=== PATIENT | female | born 1970 | race Two or more races ===

== ENCOUNTER 2016-07-21 14:34 | Emergency (ER) | payer SELFPAY ==
--- NOTE | 2016-07-21 14:42 | ER Document Report ---
ED Medical Screen (RME) - General Stated Complaint: TROUBLE BREATHING Mode of Arrival: Ambulatory Information source: Patient Notes: Patient presents to the emergency department with sore throat fever last night. Hoarse voice. No known exposure to strep. Denies vomiting diarrhea. Pt has tried honey, no relief of symptom. I have greeted and performed a rapid initial assessment of this patient. A comprehensive ED assessment and evaluation of the patient, analysis of test results and completion of the medical decision making process will be conducted by additional ED providers. TRAVEL OUTSIDE OF THE [place] IN LAST 30 DAYS: No - Related Data Allergies/Adverse Reactions: No Known Allergies Allergy (Verified 01/27/15 11:04) Past Medical History - Past Medical History Cardiac Medical History: Denies: Hx Coronary Artery Disease, Hx Heart Attack, Hx Hypertension Pulmonary Medical History: Reports: Hx Asthma - last attack about 2 years ago, Hx Bronchitis - last year Denies: Hx COPD, Hx Pneumonia Neurological Medical History: Denies: Hx Cerebrovascular Accident, Hx Seizures Musculoskeltal Medical History: Denies Hx Arthritis Psychiatric Medical History: Reports: Hx Anxiety - Immunizations Hx Diphtheria, Pertussis, Tetanus Vaccination: Yes
[2016-07-21] MEDS ORDERED: PREDNISONE 20 MG TABLET PO ONE (16:06)
[2016-07-21] MEDS ORDERED: IPRATROPIUM/ALBUTEROL 0.5-2.5 MG/3 ML AMPUL NEB ONE ×2 (16:06→17:28)
[2016-07-21] MEDS ORDERED: GUAIFENESIN 600 MG TABLET.SA PO ONE (16:07)
--- NOTE | 2016-07-21 16:12 | ER Document Report ---
ED Respiratory Problem - General Chief Complaint: Sore Throat Stated Complaint: TROUBLE BREATHING Time seen by provider: 16:08 Mode of Arrival: Ambulatory Information source: Patient Notes: This is a 46-year-old female with a history of asthma, breast cancer. She presents to the emergency room with 2 day history of fever, cough, wheezing, sore throat and pain with swallowing. Past medical history: Breast cancer status post right lumpectomy, status post chemotherapy and radiation therapy. Asthma Medicines: None No known drug allergies Primary care physician: Dr. Rodriguez TRAVEL OUTSIDE OF THE [place] IN LAST 30 DAYS: No - HPI Patient complains to provider of: Asthma Onset: Other - Past 2 days Quality of pain: Achy, Dull Severity: Mild Pain Level: 1 Context: Other - Asthma Short of Breath: Mild Chest pain/discomfort: denies: Center, Constant, Heaviness, Intermittent, Left, Pain, Radiates to arm, Radiates to back, Radiates to jaw, Right, Tightness, Worse with deep breaths Cough: Nonproductive Sputum amount: None At home treatment: denies: Bronchodilators, CPAP, Diuretics, Inhaled steroids, Oral steroids, Oxygen, Singulair, Theophylline EMS treatments: No: Bronchodilators, CPAP, Diuretics, Epinephrine, Nitrates, Oxygen, Solumedrol Associated symptoms: Chills, Congestion, Cough, Fever, Short of breath, Wheezing Similar symptoms previously: No Recently seen / treated by doctor: No - Related Data Allergies/Adverse Reactions: No Known Allergies Allergy (Verified 07/21/16 14:42) Past Medical History - General Information source: Patient - Social History Smoking Status: Never Smoker Cigarette use (# per day): No Chew tobacco use (# tins/day): No Frequency of alcohol use: None Drug Abuse: None Lives with: Family Family History: Reviewed & Not Pertinent Patient has suicidal ideation: No Patient has homicidal ideation: No - Past Medical History Cardiac Medical History: Denies: Hx Coronary Artery Disease, Hx Heart Attack, Hx Hypertension Pulmonary Medical History: Reports: Hx Asthma - last attack about 2 years ago, Hx Bronchitis - last year Denies: Hx COPD, Hx Pneumonia Neurological Medical History: Denies: Hx Cerebrovascular Accident, Hx Seizures Renal/ Medical History: Denies: Hx Peritoneal Dialysis Malignancy Medical History: Reports: Hx Breast Cancer GI Medical History: Reports: None Musculoskeltal Medical History: Denies Hx Arthritis Psychiatric Medical History: Reports: Hx Anxiety Past Surgical History: Reports: Hx Breast Surgery, Other - Status post left port (removed approximately one year ago) - Immunizations Hx Diphtheria, Pertussis, Tetanus Vaccination: Yes Review of Systems - Review of Systems Constitutional: Chills, Fever EENT: See HPI Cardiovascular: No symptoms reported Respiratory: See HPI, Cough, Short of breath, Wheezing Gastrointestinal: No symptoms reported Genitourinary: No symptoms reported Female Genitourinary: No symptoms reported Musculoskeletal: No symptoms reported Skin: No symptoms reported Hematologic/Lymphatic: No symptoms reported Neurological/Psychological: No symptoms reported Physical Exam - Vital signs Vitals: Temp Pulse Resp BP Pulse Ox 97.9 F 87 18 122/75 98 07/21/16 14:40 07/21/16 14:40 07/21/16 14:40 07/21/16 14:40 07/21/16 14:40 Notes: Physical exam: GENERAL: 46-year-old female, alert and oriented 3, no acute distress. Patient does have a hoarse voice. She has no stridor, no drooling. HEAD: Atraumatic, normocephalic. EYES: Pupils equal round and reactive to light, extraocular movements intact, sclera anicteric, conjunctiva are normal. ENT: TMs normal, nares patent, oropharynx clear without exudates, no uvula deviation, no swelling, no erythema. Moist mucous membranes. NECK: Normal range of motion, supple without lymphadenopathy , no tracheal deviation LUNGS: Breath sounds clear to auscultation bilaterally and equal. No wheezes rales or rhonchi. HEART: Regular rate and rhythm without murmurs, rubs or gallops. ABDOMEN: Soft, normoactive bowel sounds. No tenderness to palpation. No guarding, no rebound. No masses appreciated. EXTREMITIES: Normal range of motion, no pitting or edema. No clubbing or cyanosis. NEUROLOGICAL: Cranial nerves II through XII grossly intact. Normal speech, normal gait. PSYCH: Normal mood, normal affect. SKIN: Warm, Dry, normal turgor, no rashes or lesions noted. Course - Re-evaluation Re-evalutation: 07/21/16 19:09 Patient is feeling much better after nebulizer treatments. She was given an inhaler to go home. She was started on antibiotics and steroids. - Vital Signs Vital signs: Temp Pulse Resp BP Pulse Ox 98.0 F 91 18 115/88 H 98 07/21/16 19:38 07/21/16 19:38 07/21/16 14:40 07/21/16 19:38 07/21/16 19:38 - Diagnostic Test Radiology reviewed: Image reviewed, Reports reviewed - Chest x-ray shows no pneumonia Discharge - Discharge Clinical Impression: bronchitis with bronchospasm Condition: Stable Disposition: HOME, SELF-CARE Instructions: Bronchitis With Bronchospasm (Wheezing) ([facility]) Additional Instructions: Recommendations: Use the inhaler every 6 hours (2 puffs) as needed. Start the Medrol Dosepak tomorrow: New given today's dose of steroids in the ER. Start the antibiotics tomorrow: New given today's antibiotics in the ER Rest, drink plenty of fluids Follow-up with Dr. Rodriguez Return to the emergency room for worsening shortness of breath or difficulty breathing. Prescriptions: Azithromycin [Zithromax 250 mg Tablet] 250 mg PO ASDIR PRN #6 tablet PRN Reason: Methylprednisolone [Medrol 4 mg Dosepack 21 Tab/Pack] 4 mg PO ASDIR PRN #21 tab.ds.pk PRN Reason: Forms: Return to Work Referrals: LANRE RODRIGUEZ MD [Primary Care Provider] - Follow up in 3-5 days
[2016-07-21] MEDS ORDERED: IBUPROFEN 600 MG TABLET PO ONE (17:56)
[2016-07-21] MEDS ORDERED: AZITHROMYCIN 250 MG TABLET PO ONE (18:09)
[2016-07-21] MEDS ORDERED: ALBUTEROL SULFATE HFA (90 MCG/PUFF) 8 GM MDI (1 MDI/ER DISP) IH PRN (19:06)
[2016-07-21 19:42] VITALS: BP 115/88
== END 2016-07-21 19:39 | disposition home or self-care (01) ==
LOC: ER 14:34
DX: J20.9 Acute bronchitis, unspecified (principal); J02.9 Acute pharyngitis, unspecified; Z85.3 Personal history of malignant neoplasm of breast
CPT/HCPCS: 94640 ×2; 99283; 87070; 87880; 71020; 70360; J7512; J3490; J7620

== ENCOUNTER → 2016-07-24 | Outpatient (CLI) | payer OTHER ==
[2016-07-24 17:11] LABS: ABSOLUTE MONOCYTES (AUTO) 0.2 10^3/uL (0.1-1.4); ABSOLUTE NEUT (AUTO) 7.3 10^3/uL (1.7-8.2); BASOPHILS % (AUTO) 0.3 % (0-2); EOSINOPHILS % (AUTO) 0.5 % (0-6); HEMATOCRIT 39.9 % (36.0-47.0); HEMOGLOBIN 13.4 g/dL (12.0-15.5); HGB HCT DIFFERENCE 0.3; LYMPHOCYTES % (AUTO) 11.7 % (13-45); MEAN CORPUSCULAR HEMOGLOBIN 29.9 pg (27.0-33.4); MEAN CORPUSCULAR HGB CONC 33.6 g/dL (32.0-36.0); MEAN CORPUSCULAR VOLUME 89 fl (80-97); MONOCYTES % (AUTO) 2.6 % (3-13); RED BLOOD COUNT 4.48 10^6/uL (3.72-5.28); RED CELL DISTRIBUTION WIDTH 13.5 % (11.5-14.0); SEGMENTED NEUTROPHILS % (AUTO) 84.9 % (42-78); WHITE BLOOD COUNT 8.6 10^3/uL (4.0-10.5)
[2016-07-24 17:32] LABS: ALANINE AMINOTRANSFERASE 39 U/L (9-52); ALBUMIN 4.7 g/dL (3.5-5.0); ALKALINE PHOSPHATASE 67 U/L (38-126); ANION GAP 11 (5-19); ASPARTATE AMINO TRANSFERASE 27 U/L (14-36); BILIRUBIN,TOTAL 0.6 mg/dL (0.2-1.3); BLOOD UREA NITROGEN 12 mg/dL (7-20); CALCIUM 9.8 mg/dL (8.4-10.2); CARBON DIOXIDE 25 mmol/L (22-30); CHLORIDE 102 mmol/L (98-107); CREATINE KINASE 62 U/L (30-135); CREATININE RESULT 0.74 mg/dL (0.52-1.25); GLUCOSE 110 mg/dL (75-110); POTASSIUM 4.6 mmol/L (3.6-5.0); TOTAL PROTEIN 7.9 g/dL (6.3-8.2)
== END ==
LOC: OD 16:01
PROVIDERS: ATTEND Physician Assistant
DX: R07.9 Chest pain, unspecified (principal)
CPT/HCPCS: 36415; 80053; 82550; 82553; 85025; 85379

== ENCOUNTER 2016-12-01 16:54 | Emergency (ER) | payer OTHER ==
--- NOTE | 2016-12-01 18:12 | ER Document Report ---
HPI - HPI Pain Level: 4 Notes: Patient is a 38-year-old female presents the ED status [place] to arrival. Patient states that she did not hit her head, lose consciousness, or have any nausea/vomiting. Patient states that she did injure her left lower leg/ankle along with her right forearm and right humerus. Patient notes bruising and some swelling to those areas. Patient states that she is unable to weight-bear because of the pain in her left leg. The pains do not radiate otherwise. The pains are described as sharp and achy along with soreness. She has not had any thing for her symptoms. No other concerns or complaints. Denies any headache, fever, URI, sore throat, dysphagia , dysphasia, changes in mentation/vision/hearing/speech, chest pain, palpitations, syncope, cough, wheeze, shortness of breath, dyspnea, abdominal pain, nausea/vomiting/diarrhea, hematuria, back pain, muscle paralysis/weakness , loss of control bowel or bladder, saddle anesthesia, numbness/tingling, urinary retention, or rash otherwise. Patient denies any drug allergies. Patient has a past medical history significant for breast cancer and depression without any current SI/HI. Her PCM is Vero Galeas who works in Dr. Dumont's office. She denies any smoking, illicit drugs, or alcohol use. No other recent travel, illness, sick contacts. - ROS Notes: REVIEW OF SYSTEMS: CONSTITUTIONAL : Denies fever, chills, or sweats. Denies recent illness. EENT: Denies eye, ear, throat, or mouth pain or symptoms. Denies nasal or sinus congestion or discharge. Denies throat, tongue, or mouth swelling or difficulty swallowing. CARDIOVASCULAR: Denies chest pain. Denies palpitations or racing or irregular heart beat. Denies ankle edema. RESPIRATORY: Denies cough, cold, or chest congestion. Denies shortness of breath, difficulty breathing, or wheezing. GASTROINTESTINAL: Denies abdominal pain or distention. Denies nausea, vomiting , or diarrhea. Denies blood in vomitus, stools, or per rectum. Denies black, tarry stools. Denies constipation. GENITOURINARY: Denies difficulty urinating, painful urination, burning, frequency, blood in urine, or discharge. MUSCULOSKELETAL: see hpi SKIN: Denies rash, lesions or sores. NEUROLOGICAL: Denies confusion or altered mental status. Denies passing out or loss of consciousness. Denies dizziness or lightheadedness. Denies headache. Denies weakness or paralysis or loss of use of either side. Denies problems with gait or speech. Denies sensory loss, numbness, or tingling. ALL OTHER SYSTEMS REVIEWED AND NEGATIVE. Dictation was performed using [employer] voice recognition software - CARDIOVASCULAR Cardiovascular: DENIES: Chest pain - REPRODUCTIVE Reproductive: DENIES: : - DERM Skin Color: Normal Past Medical History - Social History Smoking Status: Former Smoker Chew tobacco use (# tins/day): No Frequency of alcohol use: None Drug Abuse: None Family History: Reviewed & Not Pertinent - Past Medical History Cardiac Medical History: Denies: Hx Coronary Artery Disease, Hx Heart Attack, Hx Hypertension Pulmonary Medical History: Reports: Hx Asthma - last attack about 2 years ago, Hx Bronchitis - last year Denies: Hx COPD, Hx Pneumonia Neurological Medical History: Denies: Hx Cerebrovascular Accident, Hx Seizures Renal/ Medical History: Denies: Hx Peritoneal Dialysis Malignancy Medical History: Reports: Hx Breast Cancer Musculoskeltal Medical History: Denies Hx Arthritis Psychiatric Medical History: Reports: Hx Anxiety Past Surgical History: Reports: Hx Breast Surgery - and lymph nodes, Other - Status post left port (removed approximately one year ago) - Immunizations Hx Diphtheria, Pertussis, Tetanus Vaccination: Yes Vertical Provider Document - CONSTITUTIONAL Agree With Documented VS: Yes Notes: PHYSICAL EXAMINATION: GENERAL: Well-appearing, well-nourished and in no acute distress. Pt sitting in WC. HEAD: Atraumatic, normocephalic. Non-tender. No richardson sign EYES: Pupils equal round and reactive to light, extraocular movements intact, sclera anicteric, conjunctiva are normal. No raccoon eyes/entrapment ENT: EAC clear b/l. TM's intact b/l without erythema, fluid, or perforation. Nares patent and without discharge. oropharynx clear without exudates. No tonsilar hypertrophy or erythema. Moist mucous membranes. No sinus tenderness. No hemotympanum/CSF discharge. NECK: Normal range of motion, supple without lymphadenopathy. No rigidity. No midline tenderness. Spurling negative. NEXUS negative. Chest: No ecchymosis. No flail chest. equal rise/fall. Non-tender LUNGS: Breath sounds clear to auscultation bilaterally and equal. No wheezes rales or rhonchi. HEART: Regular rate and rhythm without murmurs, rubs, gallops. ABDOMEN: Soft, nontender, nondistended abdomen. No guarding, no rebound. No masses appreciated. Normal bowel sounds present. No CVA tenderness bilaterally. No ecchymosis. Musculoskeletal: Lt leg: FROM at the knee/ankle to passive/active. Strength 5+ /5. + ecchymosis noted to the anterior lower leg with swelling. Swelling also noted to the lateral ankle. + tenderness to palp of the tib/fib and lateral malleolus. No foot tenderness. N/V intact distal with 2+ pulses. Rt arm: + mild ecchymosis distal humerus with mild tenderness to palp. No tenderness to palp of the elbow. Rt forearm: + ecchymosis to the posterior proximal 1/3 forearm with tenderness to palp. N/V intact distal. Back: FROM to passive/active. Strength 5+/5. No vertebral point tenderness, stepoffs, or deformities. No other bony tenderness or ecchymosis. Extremities: No cyanosis, clubbing, or edema b/l. Peripheral pulses 2+. Capillary refill less than 2 seconds. NEUROLOGICAL: MMSE intact. Cranial nerves grossly intact. Normal speech. Normal sensory, motor exams. Reflexes 2+ b/l. AKI's negative. Pronator drift negative. Heel/pruett, finger/nose wnl. PSYCH: Normal mood, normal affect. SKIN: Warm, Dry, normal turgor, no rashes or lesions noted.--See MSK exam otherwise. - INFECTION CONTROL TRAVEL OUTSIDE OF THE [place] IN LAST 30 DAYS: No - RESPIRATORY O2 Sat by Pulse Oximetry: 98 Course - Re-evaluation Re-evalutation: 12/01/16 19:15 Patient is an afebrile, well-hydrated, 38-year-old female presents the ED with leg, arm, forearm contusions and ankle sprain/strain based on H&P. XR unremarkable for any acute fracture/dislocation. Oxycodone 5mg given PO today. Vitals are stable. PE otherwise unremarkable. Crutches provided. Voltaren gel and meloxicam Rx given. Conservative measures for symptoms otherwise. Recheck with PCM this week. Consider consult with Orthopedics for ongoing/ worsening symptoms. Return to the ED with any worsening/concerning symptoms otherwise as reviewed in discharge. Patient is in agreement. - Vital Signs Vital signs: Temp Pulse Resp BP Pulse Ox 98.7 F 95 16 104/62 98 12/01/16 17:11 12/01/16 17:11 12/01/16 17:11 12/01/16 17:11 12/01/16 17:11 Discharge - Discharge Clinical Impression: Contusion of leg, left Qualifiers: Encounter type: initial encounter Qualified Code(s): S80.12XA - Contusion of left lower leg, initial encounter Arm pain Qualifiers: Laterality: right Qualified Code(s): M79.601 - Pain in right arm Muscle strain of ankle Qualifiers: Encounter type: initial encounter Laterality: left Qualified Code(s): S96.912A - Strain of unspecified muscle and tendon at ankle and foot level, left foot, initial encounter Condition: Stable Disposition: HOME, SELF-CARE Instructions: Ice & Elevation ([facility]), Ice Packs ([facility]), Warm Packs ([facility]), Use of Crutches ([facility]) Additional Instructions: Rest, Ice, Compression, Elevation Use cruthces as directed Tylenol/ibuprofen as needed Light stretches daily Strength exercises as able Moist heat and massage may help F/u with your PCP in 2-3 days for a recheck Consider consult(s) with Orthopedics for ongoing/worsening symptoms Return to the ED with any worsening symptoms and/or development of fever, headache, chest pain, palpitations, syncope, shortness of breath, trouble breathing, abdominal pain, n/v/d, blood in stool/urine, loss of control of bowel /bladder, urinary retention, muscle weakness/paralysis, saddle anesthesia, numbness/tingling, or other worsening symptoms that are concerning to you. Prescriptions: Diclofenac Sodium [Voltaren] 4 gm TP QID PRN #100 gel..gm. PRN Reason: Meloxicam 7.5 mg PO BID PRN #20 tablet PRN Reason: Referrals: [facility] ([facility]) [Provider Group] - Follow up as needed
[2016-12-01] MEDS ORDERED: OXYCODONE HCL IR 5 MG TABLET PO ONE (18:21)
--- NOTE | 2016-12-01 19:04 | RADIOLOGY REPORT (SQ) ---
EXAM DESCRIPTION: ANKLE LEFT COMPLETE COMPLETED DATE/TIME: 12/01/2016 6:51 pm REASON FOR STUDY: Left ankle/leg pain s/p fall, + ecchymosis/swellin COMPARISON: None. NUMBER OF VIEWS: Three views. TECHNIQUE: AP, lateral, and oblique radiographic images acquired of the left ankle. LIMITATIONS: None. FINDINGS: MINERALIZATION: Normal. BONES: No acute fracture or dislocation. No worrisome bone lesions. JOINTS: No effusions. SOFT TISSUES: Lateral soft tissue swelling. OTHER: No other significant finding. IMPRESSION: Lateral soft tissue swelling without underlying osseous injury. TECHNICAL DOCUMENTATION: JOB ID: [id number] [employer]- All Rights Reserved
--- NOTE | 2016-12-01 19:05 | RADIOLOGY REPORT (SQ) ---
EXAM DESCRIPTION: FOREARM RIGHT COMPLETED DATE/TIME: 12/01/2016 6:51 pm REASON FOR STUDY: Rt forearm pain s/p fall, + ecchymosis/swelling COMPARISON: None. NUMBER OF VIEWS: Two views. TECHNIQUE: Two radiographic images acquired of the right forearm, including elbow and wrist in at le ast one projection. LIMITATIONS: None. FINDINGS: MINERALIZATION: Normal. BONES: No acute fracture. No worrisome bone lesions. SOFT TISSUES: No obvious swelling or foreign body. OTHER: No other significant finding. IMPRESSION: NEGATIVE STUDY OF THE RIGHT FOREARM. NO RADIOGRAPHIC EVIDENCE OF ACUTE INJURY. TECHNICAL DOCUMENTATION: JOB ID: [id number] [employer]- All Rights Reserved
--- NOTE | 2016-12-01 19:05 | RADIOLOGY REPORT (SQ) ---
EXAM DESCRIPTION: TIBIA FIBULA LEFT COMPLETED DATE/TIME: 12/01/2016 6:51 pm REASON FOR STUDY: Left ankle/leg pain s/p fall, + ecchymosis/swellin COMPARISON: None. NUMBER OF VIEWS: Two views. TECHNIQUE: Two radiographic images acquired of the left tibia and fibula to include the knee and ank le in at least one projection. LIMITATIONS: None. FINDINGS: MINERALIZATION: Normal. BONES: No acute fracture or dislocation. No worrisome bone lesions. SOFT TISSUES: Lateral soft tissue swelling. OTHER: No other significant finding. IMPRESSION: Lateral soft tissue swelling without underlying osseous injury. TECHNICAL DOCUMENTATION: JOB ID: [id number] [employer]- All Rights Reserved
--- NOTE | 2016-12-01 19:06 | RADIOLOGY REPORT (SQ) ---
EXAM DESCRIPTION: HUMERUS RIGHT COMPLETED DATE/TIME: 12/01/2016 6:51 pm REASON FOR STUDY: Right arm pain s/p fall, + ecchymosis COMPARISON: None. NUMBER OF VIEWS: Two views. TECHNIQUE: Two radiographic images were acquired of the right humerus to include elbow and shoulder in at least one projection. LIMITATIONS: None. FINDINGS: MINERALIZATION: Normal. BONES: No acute fracture or dislocation. No worrisome bone lesions. SOFT TISSUES: Incidental note is made of axillary surgical clips. No acute abnormality. OTHER: No other significant finding. IMPRESSION: NEGATIVE STUDY OF THE RIGHT HUMERUS. NO RADIOGRAPHIC EVIDENCE OF ACUTE INJURY. TECHNICAL DOCUMENTATION: JOB ID: [id number] [employer]- All Rights Reserved
[2016-12-01 19:27] VITALS: BP 107/64
== END 2016-12-01 19:28 | disposition home or self-care (01) ==
LOC: ER 16:54
DX: S96.912A Strain of unspecified muscle and tendon at ankle and foot level, left foot, initial encounter (principal); S80.12XA Contusion of left lower leg, initial encounter; S40.021A Contusion of right upper arm, initial encounter; S50.11XA Contusion of right forearm, initial encounter; W10.9XXA Fall (on) (from) unspecified stairs and steps, initial encounter; Y92.009 Unspecified place in unspecified non-institutional (private) residence as the place of occurrence of the external cause; J45.909 Unspecified asthma, uncomplicated; Z85.3 Personal history of malignant neoplasm of breast; Z87.891 Personal history of nicotine dependence
CPT/HCPCS: 99283

== ENCOUNTER → 2016-12-13 | Outpatient (CLI) | payer OTHER ==
--- NOTE | 2016-12-13 10:41 | RADIOLOGY REPORT (SQ) ---
EXAM DESCRIPTION: VENOUS UNILATERAL LOWER COMPLETED DATE/TIME: 12/13/2016 9:46 am REASON FOR STUDY: LLE PAIN M79.605 PAIN IN LEFT LEG COMPARISON: None. TECHNIQUE: Dynamic and static chaudhry scale and color images acquired of the left leg venous system. Se lected spectral images acquired with additional compression and augmentation maneuvers. The contralat eral common femoral vein and saphenofemoral junction were also imaged. Images stored on PACS. LIMITATIONS: None. FINDINGS: COMMON FEMORAL: Normal phasicity, compression and augmentation. No visualized echogenic ma terial on chaudhry scale. No defects on color images. FEMORAL: Normal compression and augmentation. No visualized echogenic material on chaudhry scale. No defe cts on color images. POPLITEAL: Normal compression, augmentation. No visualized echogenic material on chaudhry scale. No defec ts on color images. CALF VESSELS: Normal compression, augmentation. No visualized echogenic material on chaudhry scale. No de fects on color images. GSV and SSV: Normal compression, augmentation. No visualized echogenic material on chaudhry scale. No def ects on color images. ANY DEEP VENOUS INSUFFICIENCY: Not evaluated. ANY EVIDENCE OF POPLITEAL CYST: No. OTHER: There is a subcutaneous fluid collection in the anterior left calf measuring 47 x 46 x 10 mm. CONTRALATERAL COMMON FEMORAL VEIN AND SAPHENOFEMORAL JUNCTION: Normal phasicity, compression and augmentation. No visualized echogenic material on chaudhry scale. No de fects on color images. IMPRESSION: 1. NO EVIDENCE OF DVT OR SVT IN THE LEFT LEG. 2. Possible hematoma in the anterior left calf. TECHNICAL DOCUMENTATION: JOB ID: [id number] [employer]- All Rights Reserved
== END ==
LOC: SP 09:00
PROVIDERS: ATTEND Physician Assistant
DX: M79.605 Pain in left leg (principal)
CPT/HCPCS: 93971

== ENCOUNTER 2017-06-20 13:06 | Emergency (ER) | payer OTHER ==
[2017-06-20 13:20] VITALS: BP 108/74
--- NOTE | 2017-06-20 15:24 | ER Document Report ---
HPI - HPI Pain Level: 1 Notes: Patient is a 47-year-old female with a history of asthma who presents ED complaining of chills, dry nonproductive cough, one episode of nausea/vomiting, occasional diarrhea (x2) that all began this morning. Patient states that since then she has been eating and drinking without any difficulties. She is urinating normally. Patient has not been using any afcs-bau-ldnrnjp meds for symptoms. She is ambulatory without any chest pains or dyspnea on exertion. She denies any drug allergies. Denies any IV drug use. Patient has been exposed to multiple illnesses around her household. Denies any headache, fever , neck pain, URI, sore throat, chest pain, palpitations, syncope, shortness of breath, wheeze, dyspnea, abdominal pain, urinary retention, dysuria, hematuria, hematemesis, melena, hematochezia, or rash. - ROS Systems Reviewed and Negative: Yes All other systems reviewed and negative - NEURO Neurology: REPORTS: Headache - REPRODUCTIVE Reproductive: DENIES: : Past Medical History - Social History Smoking Status: Never Smoker Chew tobacco use (# tins/day): No Frequency of alcohol use: None Drug Abuse: None Family History: Reviewed & Not Pertinent Patient has suicidal ideation: No Patient has homicidal ideation: No - Past Medical History Cardiac Medical History: Denies: Hx Coronary Artery Disease, Hx Heart Attack, Hx Hypertension Pulmonary Medical History: Reports: Hx Asthma - last attack about 2 years ago, Hx Bronchitis - last year Denies: Hx COPD, Hx Pneumonia Neurological Medical History: Denies: Hx Cerebrovascular Accident, Hx Seizures Renal/ Medical History: Denies: Hx Peritoneal Dialysis Malignancy Medical History: Reports: Hx Breast Cancer Musculoskeltal Medical History: Denies Hx Arthritis Psychiatric Medical History: Reports: Hx Anxiety Past Surgical History: Reports: Hx Breast Surgery - and lymph nodes, Other - Status post left port (removed approximately one year ago) - Immunizations Hx Diphtheria, Pertussis, Tetanus Vaccination: Yes Vertical Provider Document - CONSTITUTIONAL Agree With Documented VS: Yes Notes: PHYSICAL EXAMINATION: GENERAL: Well-appearing, well-nourished and in no acute distress. A&Ox4. Answers questions appropriately. Moves comfortably w/o notable distress HEAD: Atraumatic, normocephalic. EYES: Pupils equal round and reactive to light, extraocular movements intact, sclera anicteric, conjunctiva are normal. ENT: EAC clear b/l. TM's intact b/l without erythema, fluid, or perforation. Nares patent and without discharge. oropharynx no erythema without exudates. No tonsilar hypertrophy without erythema or exudate. No palatine shift. Uvula midline. No tongue protrusion. No drooling, hoarseness, or airway compromise. Moist mucous membranes. No sinus tenderness. NECK: Normal range of motion, supple without lymphadenopathy. No rigidity/ meningismus. LUNGS: Breath sounds clear to auscultation bilaterally and equal. No wheezes rales or rhonchi. No retractions HEART: Regular rate and rhythm without murmurs, rubs, gallops. ABDOMEN: Soft, nontender, nondistended abdomen. No guarding, no rebound. No masses appreciated. Normal bowel sounds present. No CVA tenderness bilaterally. No hepatosplenomegaly. NEUROLOGICAL: Normal speech, normal gait. Normal sensory, motor exams PSYCH: Normal mood, normal affect. SKIN: Warm, Dry, normal turgor, no rashes or lesions noted. - INFECTION CONTROL TRAVEL OUTSIDE OF THE [place] IN LAST 30 DAYS: No - RESPIRATORY O2 Sat by Pulse Oximetry: 100 Course - Re-evaluation Re-evalutation: 06/20/17 15:21 Patient is an afebrile, well-hydrated, 47-year-old female presents to the ED with a suspected viral illness. Vitals are stable. PE is otherwise unremarkable. No labs or imaging warranted at this time based on H&P. Patient is tolerating p.o. without any difficulties. Lungs are clear to auscultation bilaterally. Oxygen saturation is 100%, nontoxic, not tachycardiac, non- tachypneic. Low suspicion for any meningitis, sepsis, peritonsillar/pharyngeal abscess, respiratory compromise, Martin's, acute abdomen, or other emergent systemic condition at this time. Patient is aware this condition can change from initial presentation and she needs to monitor symptoms closely. Conservative measures otherwise for symptoms. Recheck with your PCM in 3-5 days. Return to the ED with any worsening/concerning symptoms otherwise as reviewed in discharge. Patient is in agreement. - Vital Signs Vital signs: Temp Pulse Resp BP Pulse Ox 99.0 F 95 18 108/74 100 06/20/17 13:19 06/20/17 13:19 06/20/17 13:19 06/20/17 13:19 06/20/17 13:19 Discharge - Discharge Clinical Impression: Cough, Viral syndrome Diarrhea Qualifiers: Diarrhea type: unspecified type Qualified Code(s): R19.7 - Diarrhea, unspecified Condition: Stable Disposition: HOME, SELF-CARE Instructions: Viral Syndrome ([facility]), Diarrhea, Nonspecific ([facility]) Additional Instructions: Maintain adequate fluid and food intake [place] diet (B.R.[employer].T[employer] Bananas, rice, apples, toast, etc tylenol if needed Monitor for any worsening symptoms Make sure you are staying hydrated enough to urinate and have normal BM's cold medications as needed Recheck with your PCM in 3-5 days Consider consult with Gastroenterology for ongoing/worsening symptoms Return to the ED with any worsening symptoms and/or development of fever, headache, chest pain, palpitations, syncope, shortness of breath, trouble breathing, abdominal pain, n/v/d, blood in stool/urine, weakness, or other worsening symptoms that are concerning to you. Referrals: PAULINA LORENZANA MD [ACTIVE STAFF] - Follow up as needed
== END 2017-06-20 15:37 | disposition home or self-care (01) ==
LOC: ER 13:06
DX: B34.9 Viral infection, unspecified (principal); R05 Cough; R11.2 Nausea with vomiting, unspecified; R19.7 Diarrhea, unspecified; R68.83 Chills (without fever); R51 Headache; J45.909 Unspecified asthma, uncomplicated; Z85.3 Personal history of malignant neoplasm of breast
CPT/HCPCS: 99283

== ENCOUNTER 2018-03-22 14:38 | Emergency (ER) | payer OTHER ==
[2018-03-22 14:43] VITALS: BP 132/79
[2018-03-22] MEDS ORDERED: PENICILLIN V POTASSIUM 500 MG TABLET PO ONE (14:52)
[2018-03-22] MEDS ORDERED: IBUPROFEN 800 MG TABLET PO ONE (14:52)
--- NOTE | 2018-03-22 14:53 | ER Document Report ---
HPI - HPI Patient complains to provider of: tooth pain Pain Level: 4 Context: Patient is a 48-year-old female presenting to the emergency department complaining of tooth pain. Patient states she has had intermittent tooth pain for months now. States she has not been to a dentist for same. States this morning she woke up with some minor swelling to the right side of her face which worried her. This is why she presents to the emergency room. Patient denies trouble eating, fever, headache. Past medical history: Breast cancer, hyperlipidemia Medications: Unknown Allergies: None - CONSTITUTIONAL Constitutional: DENIES: Fever, Chills - REPRODUCTIVE Reproductive: DENIES: : Past Medical History - General Information source: Patient - Social History Smoking Status: Never Smoker Chew tobacco use (# tins/day): No Frequency of alcohol use: None Drug Abuse: None Lives with: Family Family History: Reviewed & Not Pertinent Patient has suicidal ideation: No Patient has homicidal ideation: No - Past Medical History Cardiac Medical History: Denies: Hx Coronary Artery Disease, Hx Heart Attack, Hx Hypertension Pulmonary Medical History: Reports: Hx Asthma - last attack about 2 years ago, Hx Bronchitis - last year Denies: Hx COPD, Hx Pneumonia Neurological Medical History: Denies: Hx Cerebrovascular Accident, Hx Seizures Renal/ Medical History: Denies: Hx Peritoneal Dialysis Malignancy Medical History: Reports: Hx Breast Cancer Musculoskeletal Medical History: Denies Hx Arthritis Psychiatric Medical History: Reports: Hx Anxiety Past Surgical History: Reports: Hx Breast Surgery - and lymph nodes, Other - Status post left port (removed approximately one year ago) - Immunizations Hx Diphtheria, Pertussis, Tetanus Vaccination: Yes Vertical Provider Document - CONSTITUTIONAL Agree With Documented VS: Yes Notes: GENERAL: Alert, interacts well. No acute distress. HEAD: Normocephalic, atraumatic. EYES: Pupils equal, round, and reactive to light. Extraocular movements intact. ENT: Oral mucosa moist, tongue midline. Multiple missing teeth, obvious dental caries throughout all dentition. Fractured tooth noted tooth #3 and 4. Minor erythema noted to gumline. No areas of fluctuance or induration noted. Slight swelling noted to right cheek overlying skin not erythematous, indurated or fluctuant. NECK: Full range of motion. Supple. Trachea midline. No lymphadenopathy appreciated LUNGS: Clear to auscultation bilaterally, no wheezes, rales, or rhonchi. No respiratory distress. HEART: Regular rate and rhythm. No murmur ABDOMEN: Soft, non-tender. Non-distended. Bowel sounds present in all 4 quadrants. EXTREMITIES: Moves all 4 extremities spontaneously. No edema, normal radial and dorsalis pedis pulses bilaterally. No cyanosis. BACK: no cervical, thoracic, lumbar midline tenderness. No saddle anesthesia, normal distal neurovascular exam. NEUROLOGICAL: Alert and oriented x3. Normal speech. cranial nerves II through XII grossly intact PSYCH: Normal affect, normal mood. SKIN: Warm, dry, normal turgor. No rashes or lesions noted. - INFECTION CONTROL TRAVEL OUTSIDE OF THE [place] IN LAST 30 DAYS: No Course - Re-evaluation Re-evalutation: 03/22/18 15:26 Discussed need for antibiotics with patient at bedside. Discussed follow-up with community care in clinic or with her primary dentist. Discussed return precautions. - Vital Signs Vital signs: Temp Pulse Resp BP Pulse Ox 98.8 F 79 14 132/79 H 100 03/22/18 14:43 03/22/18 14:43 03/22/18 14:43 03/22/18 14:43 03/22/18 14:43 Discharge - Discharge Clinical Impression: Toothache, Dental caries Fractured tooth Qualifiers: Encounter type: initial encounter Fracture type: closed Qualified Code(s): S02.5XXA - Fracture of tooth (traumatic), initial encounter for closed fracture Condition: Stable Disposition: HOME, SELF-CARE Instructions: [facility], Clindamycin ([facility]), Toothache ([facility]) Additional Instructions: Toothache Your pain is due to dental decay. The tooth must be repaired in order for you to feel better. You will, therefore, be referred to a dentist. Severe swelling or drainage around a tooth usually means a deep dental abscess. This also requires evaluation and treatment by the dentist, but antibiotics may be prescribed while awaiting dental treatment. You should be rechecked immediately if you develop major swelling of the face, increasing pain, a lump in the jaw or gums, headache, or fever. Prescriptions: Clindamycin HCl 300 mg PO QID 10 Days capsule Referrals: LANRE RODRIGUEZ MD [Primary Care Provider] - Follow up as needed
== END 2018-03-22 15:30 | disposition home or self-care (01) ==
LOC: ER 14:38
DX: S02.5XXA Fracture of tooth (traumatic), initial encounter for closed fracture (principal); K08.9 Disorder of teeth and supporting structures, unspecified; X58.XXXA Exposure to other specified factors, initial encounter; Z85.3 Personal history of malignant neoplasm of breast
CPT/HCPCS: 99282

== ENCOUNTER 2018-10-10 12:41 | Emergency (ER) | payer MEDICAID, OTHER ==
--- NOTE | 2018-10-10 13:43 | RADIOLOGY REPORT (SQ) ---
EXAM DESCRIPTION: KNEE RIGHT 4 VIEWS COMPLETED DATE/TIME: 10/10/2018 1:19 pm REASON FOR STUDY: fall COMPARISON: None. NUMBER OF VIEWS: Four views. TECHNIQUE: AP, lateral, and both oblique radiographic images acquired of the right knee. LIMITATIONS: None. FINDINGS: MINERALIZATION: Normal. BONES: No acute fracture or dislocation. No worrisome bone lesions. JOINT: No effusion. SOFT TISSUES: No soft tissue swelling. No radio-opaque foreign body. OTHER: No other significant finding. IMPRESSION: NEGATIVE STUDY OF THE RIGHT KNEE. NO RADIOGRAPHIC EVIDENCE OF ACUTE INJURY. TECHNICAL DOCUMENTATION: JOB ID: [id number] [employer]- All Rights Reserved Reading location - IP/workstation name: [email or web address]
--- NOTE | 2018-10-10 14:05 | ER Document Report ---
HPI - HPI Time Seen by Provider: 10/10/18 13:25 Pain Level: 2 Context: Patient is a 48-year-old female who presents the emergency department with right knee pain. She states that she was at a water park 6 days ago with her grandkids and she hit the medial aspect of her right knee, but cannot recall what she hit her knee on. She states that she has been having pain ever since that day. She is able to walk, and has been walking at work for the past week. She states that if her leg is straight she does not have any pain but when she bends her knee, she ends up having pain. She has not seen her primary care provider in regards to this issue. - ROS Systems Reviewed and Negative: Yes All other systems reviewed and negative - REPRODUCTIVE Reproductive: DENIES: : - MUSCULOSKELETAL Musculoskeletal: REPORTS: Extremity pain - Right knee Past Medical History - Social History Smoking Status: Never Smoker Family History: Reviewed & Not Pertinent Patient has suicidal ideation: No Patient has homicidal ideation: No - Past Medical History Cardiac Medical History: Denies: Hx Coronary Artery Disease, Hx Heart Attack, Hx Hypertension Pulmonary Medical History: Reports: Hx Asthma - last attack about 2 years ago, Hx Bronchitis - last year Denies: Hx COPD, Hx Pneumonia Neurological Medical History: Denies: Hx Cerebrovascular Accident, Hx Seizures Renal/ Medical History: Denies: Hx Peritoneal Dialysis Malignancy Medical History: Reports: Hx Breast Cancer Musculoskeletal Medical History: Denies Hx Arthritis Psychiatric Medical History: Reports: Hx Anxiety Past Surgical History: Reports: Hx Breast Surgery - and lymph nodes, Other - Status post left port (removed approximately one year ago) - Immunizations Hx Diphtheria, Pertussis, Tetanus Vaccination: Yes Vertical Provider Document - CONSTITUTIONAL Agree With Documented VS: Yes Exam Limitations: No Limitations General Appearance: No Apparent Distress - INFECTION CONTROL TRAVEL OUTSIDE OF THE [place] IN LAST 30 DAYS: No - HEENT HEENT: Atraumatic, Normocephalic, PERRLA - NECK Neck: Normal Inspection - RESPIRATORY Respiratory: Breath Sounds Normal, No Respiratory Distress - CARDIOVASCULAR Cardiovascular: Regular Rate, Regular Rhythm Pulses: Normal: Radial - MUSCULOSKELETAL/EXTREMETIES Musculoskeletal/Extremeties: FROM, Tender - Right medial knee, Eccymosis - Very mild ecchymosis noted to right medial knee - NEURO Level of Consciousness: Awake, Alert, Appropriate Motor/Sensory: No Motor Deficit, No Sensory Deficit, No Pronator Drift - DERM Integumentary: Warm, Dry, No Rash Course - Re-evaluation Re-evalutation: 10/10/18 14:06 Patient's x-rays negative for any acute fracture at this time. I suspect the patient may have had a contusion to her medial collateral ligament. She will see her primary care provider and follow-up with physical therapy I have instructed her to take Tylenol and ibuprofen for her pain. She is in agreement with this plan. I am also going to refer her to orthopedics in the next 2 weeks if she does not feel better. I do not suspect patient has any life-threatening etiology at this time. I do not suspect compartment syndrome. I do not suspect a septic joint. Verbal discharge instructions were given to the patient. They verbalized understanding. They are stable for discharge. - Vital Signs Vital signs: Temp Pulse Resp BP Pulse Ox 98.1 F 84 14 130/78 H 98 10/10/18 12:54 10/10/18 12:54 10/10/18 12:54 10/10/18 12:54 10/10/18 12:54 Procedures - Immobilization Right Pre-Proc Neuro Vasc Exam: Normal Immobilizer type: Crutches, Knee immobilizer Performed by: PCT Post-Proc Neuro Vasc Exam: Normal, Unchanged from pre-exam Alignment checked and good: Yes Discharge - Discharge Clinical Impression: Right knee pain Qualifiers: Chronicity: acute Qualified Code(s): M25.561 - Pain in right knee Condition: Stable Disposition: HOME, SELF-CARE Instructions: Use of Crutches ([facility]), Ice & Elevation ([facility]), Knee Immobilizing Splint ([facility]), Sprained Knee ([facility]) Additional Instructions: Your x-ray does not show any acute fracture today. You likely have a ligamentous strain. You should continue to take anti-inflammatories such as ibuprofen 600 mg every 6 hours. You can also take Tylenol 1000 mg every 6 hours. Continue to apply ice to the area is much your able. Use your crutches and your knee immobilizer. Make sure you rest for the next few days. Please follow-up with your primary care physician if you do not have improving your symptoms in the next 1-2 weeks. See if he can get a referral for physical therapy. Please return immediately if you develop weakness, numbness, spreading redness from the area, or any other symptoms that are concerning to you. Prescriptions: Ibuprofen [Motrin 600 Mg Tablet] 600 mg PO Q6HP PRN #30 tablet PRN Reason: Forms: Return to Work Referrals: LANRE RODRIGUEZ MD [Primary Care Provider] - Follow up in 1 week GLENNA HANDY MD [ACTIVE STAFF] - Follow up as needed
[2018-10-10 14:35] VITALS: BP 126/75
== END 2018-10-10 14:35 | disposition home or self-care (01) ==
LOC: ER 12:41
DX: S80.01XA Contusion of right knee, initial encounter (principal); M25.561 Pain in right knee; X58.XXXA Exposure to other specified factors, initial encounter; Y92.838 Other recreation area as the place of occurrence of the external cause; J45.909 Unspecified asthma, uncomplicated; Z85.3 Personal history of malignant neoplasm of breast
CPT/HCPCS: 99283; 73564; L1830

== ENCOUNTER 2019-01-19 12:17 | Emergency (ER) | payer SELFPAY ==
[2019-01-19] MEDS ORDERED: PENICILLIN G BENZATHINE 1.2 MILLION UNIT/2 ML DISP.SYRIN IM ONE (14:35)
[2019-01-19] MEDS ORDERED: LIDOCAINE 2% VISCOUS SOLN 20 ML UDCUP PO ONE (14:35)
[2019-01-19] MEDS ORDERED: DEXAMETHASONE 4 MG TABLET PO ONE (14:35)
--- NOTE | 2019-01-19 14:38 | ER Document Report ---
HPI - HPI Patient complains to provider of: Sore throat Time Seen by Provider: 01/19/19 14:29 Onset: Yesterday Onset/Duration: Gradual Quality of pain: Achy Pain Level: 5 Context: Patient presents complaining of sore throat with cough that started yesterday. Patient reports subjective fever at home. Associated Symptoms: Nonproductive cough, Fever, Rhinnorhea, Sore throat Exacerbated by: Denies Relieved by: Denies Similar symptoms previously: Yes Recently seen / treated by doctor: No - ROS ROS below otherwise negative: Yes Systems Reviewed and Negative: Yes All other systems reviewed and negative - CONSTITUTIONAL Constitutional: REPORTS: Fever - EENT EENT: REPORTS: Sore Throat - RESPIRATORY Respiratory: REPORTS: Coughing. DENIES: Trouble Breathing - GASTROINTESTINAL Gastrointestinal: DENIES: Nausea, Patient vomiting - REPRODUCTIVE Reproductive: DENIES: : - DERM Skin Color: Normal Skin Problems: None Past Medical History - General Information source: Patient - Social History Smoking Status: Never Smoker Frequency of alcohol use: None Drug Abuse: None Occupation: none Lives with: Family Family History: Reviewed & Not Pertinent Pulmonary Medical History: Reports: Hx Asthma - last attack about 2 years ago, Hx Bronchitis - last year Malignancy Medical History: Reports: Hx Breast Cancer Psychiatric Medical History: Reports: Hx Anxiety Past Surgical History: Reports: Hx Breast Surgery - and lymph nodes, Other - Status post left port (removed approximately one year ago) - Immunizations Hx Diphtheria, Pertussis, Tetanus Vaccination: Yes Vertical Provider Document - CONSTITUTIONAL Agree With Documented VS: Yes Exam Limitations: No Limitations General Appearance: WD/WN, No Apparent Distress - INFECTION CONTROL TRAVEL OUTSIDE OF THE [place] IN LAST 30 DAYS: No - HEENT HEENT: Atraumatic, Pharyngeal Exudate, Pharyngeal Tenderness, Pharyngeal Erythema. negative: Tympanic Membrane Red, Tympanic Membrane Bulging - NECK Neck: Lymphadenopathy-Left, Lymphadenopathy-Right - RESPIRATORY Respiratory: Breath Sounds Normal, No Respiratory Distress - CARDIOVASCULAR Cardiovascular: Regular Rate, Regular Rhythm - BACK Back: Normal Inspection - MUSCULOSKELETAL/EXTREMETIES Musculoskeletal/Extremeties: MAEW - NEURO Level of Consciousness: Awake, Alert, Appropriate Motor/Sensory: No Motor Deficit - DERM Integumentary: Warm, Dry, No Rash Course - Re-evaluation Re-evalutation: 01/19/19 Pt with what appears to be exudative tonsillitis. Will treat symptomatically at this time. No concern for tonsillar abscess at this time. - Vital Signs Vital signs: Temp Pulse Resp BP Pulse Ox 98.9 F 89 20 122/68 100 01/19/19 12:36 01/19/19 12:36 01/19/19 12:36 01/19/19 12:36 01/19/19 12:36 Discharge - Discharge Clinical Impression: Tonsillitis Condition: Stable Disposition: HOME, SELF-CARE Instructions: Antibiotic Shot ([facility]), Corticosteroid Medication ([facility]), Use of [id number] Ibuprofen ([facility]), Tonsillitis ([facility]) Additional Instructions: Return immediately for any new or worsening symptoms Followup with your primary care provider, call tomorrow to make a followup appointment Throat culture is pending, will call if you need any different treatment Referrals: LANRE RODRIGUEZ MD [Primary Care Provider] - Follow up as needed
[2019-01-19 15:12] VITALS: BP 112/75
== END 2019-01-19 15:16 | disposition home or self-care (01) ==
LOC: ER 12:17
DX: J03.90 Acute tonsillitis, unspecified (principal); R50.9 Fever, unspecified; Z85.3 Personal history of malignant neoplasm of breast
CPT/HCPCS: 87070; 87077; J3490; J0561; 96374; 99282

== ENCOUNTER → 2019-11-06 | Outpatient (CLI) | payer SELFPAY | LOC: RDC 15:37 | PROVIDERS: ATTEND Nurse Practitioner Family | DX: Z03.818 Encounter for observation for suspected exposure to other biological agents ruled out (principal) | CPT/HCPCS: 87635; C9803 ==

== ENCOUNTER 2020-03-08 06:58 | Emergency (ER) | payer SELFPAY ==
[2020-03-08 07:05] VITALS: BP 119/66
[2020-03-08] MEDS ORDERED: ACETAMINOPHEN 325 MG TABLET PO ONE (07:19)
--- NOTE | 2020-03-08 08:48 | ER Document Report ---
ED Eye Complaint - General Chief Complaint: Eye Pain Stated Complaint: EYE PAIN Time Seen by Provider: 03/08/20 08:45 Notes: CHIEF COMPLAINT: Left eye discomfort and swelling HPI: 49-year-old female presenting for evaluation of swelling of the left lower eyelid with irritation and some swelling into the face with discomfort today. [place] like she had some irritation to the left lower lid yesterday. No prior history of hordeolum or stye. ROS: See HPI - all other systems were reviewed and are otherwise negative Constitutional: no fever Eyes: no drainage, no blurred vision. Mild discomfort and swelling left eyelid ENT: no runny nose, no sore throat Integumentary: + rash Allergy: no hives MEDICATIONS: I agree with the patient medications as charted by the RN. ALLERGIES: I agree with the allergies as charted by the RN. PAST MEDICAL HISTORY/PAST SURGICAL HISTORY: Reviewed and agree as charted by RN. SOCIAL HISTORY: Reviewed and agree as charted by RN. FAMILY HISTORY: No significant familial comorbid conditions directly related to patient complaint EXAM: Reviewed vital signs as charted by RN. CONSTITUTIONAL: Alert and oriented and responds appropriately to questions. Well-appearing; well-nourished HEAD: Normocephalic; atraumatic EYES: PERRL; Conjunctivae clear, sclerae non-icteric. There is slight soft tissue swelling with erythema to the left lower eyelid. More prominent swelling to the medial aspect with a small stye present. There is slight erythema and soft tissue swelling to the inferior periorbital region of the left eye without induration or fluctuance. ENT: normal nose; no rhinorrhea; moist mucous membranes; pharynx without lesions noted, no uvula edema or deviation, no tonsillar hypertrophy, phonation normal NECK: Supple without meningismus; non-tender; no cervical lymphadenopathy, no masses CARD: symmetric distal pulses RESP: Normal chest excursion without splinting or tachypnea ABD/GI: non-distended BACK: The back appears normal EXT: Normal ROM in all joints; no cyanosis, no effusions, no edema SKIN: Normal color for age and race; warm; dry; good turgor NEURO: Moves all extremities equally; Motor and sensory function intact PSYCH: The patient's mood and manner are appropriate. Grooming and personal hygiene are appropriate. MDM: 49-year-old female with a stye to the medial aspect of the left lower eyelid with some periorbital swelling and cellulitis inferiorly. Will place on Keflex, erythromycin ointment follow-up PCP TRAVEL OUTSIDE OF THE [place] IN LAST 30 DAYS: No - Related Data Allergies/Adverse Reactions: No Known Allergies Allergy (Verified 03/08/20 07:14) Past Medical History - Social History Smoking Status: Never Smoker Frequency of alcohol use: None Drug Abuse: None Family History: Reviewed & Not Pertinent - Past Medical History Cardiac Medical History: Denies: Hx Coronary Artery Disease, Hx Heart Attack, Hx Hypertension Pulmonary Medical History: Reports: Hx Asthma - last attack about 2 years ago, Hx Bronchitis - last year Denies: Hx COPD, Hx Pneumonia Neurological Medical History: Denies: Hx Cerebrovascular Accident, Hx Seizures Renal/ Medical History: Denies: Hx Peritoneal Dialysis Malignancy Medical History: Reports: Hx Breast Cancer Musculoskeletal Medical History: Denies Hx Arthritis Psychiatric Medical History: Reports: Hx Anxiety Past Surgical History: Reports: Hx Breast Surgery - and lymph nodes, Other - Status post left port (removed approximately one year ago) - Immunizations Hx Diphtheria, Pertussis, Tetanus Vaccination: Yes Physical Exam - Vital signs Vitals: Temp Pulse Resp BP Pulse Ox 97.9 F 78 18 119/66 98 03/08/20 07:03 03/08/20 07:03 03/08/20 07:03 03/08/20 07:03 03/08/20 07:03 Course - Vital Signs Vital signs: Temp Pulse Resp BP Pulse Ox 97.9 F 78 18 119/66 98 03/08/20 07:03 03/08/20 07:03 03/08/20 07:03 03/08/20 07:03 03/08/20 07:03 Discharge - Discharge Clinical Impression: Periorbital cellulitis of left eye Hordeolum of left lower eyelid Qualifiers: Hordeolum type: unspecified type Qualified Code(s): H00.015 - Hordeolum externum left lower eyelid Condition: Stable Disposition: HOME, SELF-CARE Additional Instructions: Medications as prescribed. Follow-up for recheck with your primary care provider in 2 to 3 days. Warm compresses to the left eye is much as possible. Return for onset of fever or worsening redness or swelling around the eye as discussed Prescriptions: Erythromycin Base [Erythromycin Oph 1 Gm Oint Ud] 1 applic OS BID 5 Days #1 tube Cephalexin Monohydrate [Keflex 500 mg Capsule] 500 mg PO Q6H 7 Days #28 capsule
== END 2020-03-08 09:23 | disposition home or self-care (01) ==
LOC: ER 06:58
DX: L03.213 Periorbital cellulitis (principal); H00.015 Hordeolum externum left lower eyelid; H57.12 Ocular pain, left eye
CPT/HCPCS: 99283